=== PATIENT | male | born 1945 | race Caucasian/White ===

== ENCOUNTER 2020-07-27 05:28 | Emergency (ER) | payer OTHER, MEDICARE ==
[~2020-07-27] VITALS: Ht 177.8 cm; Wt 89.8 kg
[~2020-07-27 05:28] MED LIST: ASPI81CH PO; HYDACE5 PO; METO25ER PO; NORT25 PO; SIMV10 PO; TESTTP TOP
[2020-07-27 05:44] LABS: BASOPHILS ABSOLUTE AUTO 0.02 K/mm3 (0.00-0.23); BASOPHILS PERCENT AUTO 0 % (0-2); EOSINOPHILS ABSOLUTE AUTO 0.23 K/mm3 (0.00-0.68); EOSINOPHILS PERCENT AUTO 3 % (0-6); Hematocrit 42.8 % (37.0-53.0); Hemoglobin 14.3 g/dL (13.5-17.5); IMMATURE GRAN ABSOLUTE AUTO 0.04 K/mm3 (0.00-0.10); IMMATURE GRAN PERCENT AUTO 1 % (0-1); LYMPHOCYTES ABSOLUTE AUTO 1.88 K/mm3 (0.84-5.20); LYMPHOCYTES PERCENT AUTO 22 % (21-46); MONOCYTES ABSOLUTE AUTO 0.84 K/mm3 (0.16-1.47); MONOCYTES PERCENT AUTO 10 % (4-13); Mean Corpuscular HGB 31.3 pg (26.0-34.0); Mean Corpuscular HGB Conc 33.4 g/dL (31.5-36.5); Mean Corpuscular Volume 94 fL (80-100); Mean Platelet Volume 10.4 fL (9.1-12.4); NEUTROPHILS ABSOLUTE AUTO 5.43 K/mm3 (1.96-9.15); NEUTROPHILS PERCENT AUTO 64 % (41-73); Platelet Count 196 K/mm3 (150-400); RDW Coefficient Variation 12.9 % (11.7-14.2); Red Blood Cell Count 4.57 M/mm3 (4.30-5.90); White Blood Cell Count 8.44 K/mm3 (4.00-11.30)
[2020-07-27] MEDS ORDERED: Norco 10-325 T1 EACH PO (06:12)
[2020-07-27] MEDS ORDERED: INSULANI SC (06:14)
[2020-07-27 06:15] LABS: Anion Gap 6 mmol/L (6-16); Blood Urea Nitrogen 29 mg/dL (8-24); Bun/Creatinine Ratio 20.9 (12.0-20.0); CO2, Blood 25 mmol/L (21-32); Calcium, Blood 9.3 mg/dL (8.5-10.1); Chloride, Blood 106 mmol/L (98-108); Creatinine, Blood 1.39 mg/dL (0.60-1.20); Glomerular Filtration Rate 53 (60-); Glucose, Blood 196 mg/dL (70-99); Potassium, Blood 4.3 mmol/L (3.5-5.5); Sodium, Blood 137 mmol/L (136-145); Troponin I <0.015 ng/mL (0.000-0.040)
[2020-07-27] MEDS ORDERED: METF500 PO (06:16)
[2020-07-27] MEDS ORDERED: NOVOLIN N100 UNIT/2 SC (06:16)
[2020-07-27] MEDS ORDERED: SERT100 PO (06:18)
[2020-07-27] MEDS ORDERED: OZEMPIC1 MG/0.72 SC (06:21)
[2020-07-27] MEDS ORDERED: PRAZ5 PO (06:21)
[2020-07-27 07:16] LABS: Albumin/Globulin Ratio 1.1 (0.8-1.8); Bilirubin, Total 0.4 mg/dL (0.1-1.0); Bun/Creatinine Ratio 22.3 (12.0-20.0); Calcium, Blood 9.6 mg/dL (8.5-10.1); Creatinine, Blood 1.39 mg/dL (0.60-1.20); Globulin, Blood 3.7 g/dL (2.2-4.0); Potassium, Blood 4.4 mmol/L (3.5-5.5); Total Protein, Blood 7.7 g/dL (6.4-8.2)
== END 2020-07-27 08:08 | disposition home or self-care (01) ==
LOC: ER 05:28
PROVIDERS: Emergency Medicine; Student in an Organized Health Care Education/Training Program
DX: R07.9 Chest pain, unspecified (principal); Z79.82 Long term (current) use of aspirin; Z79.899 Other long term (current) drug therapy; Z87.891 Personal history of nicotine dependence
CPT/HCPCS: 36415; 71045; 80048; 80053; 83690; 84484; 85025; 93005; 93010; 99285-25

== ENCOUNTER 2021-04-10 08:50 | Inpatient (IN) | payer OTHER ==
[~2021-04-10] VITALS: Ht 185.4 cm; Wt 78.6 kg
[~2021-04-10 08:50] MED LIST changes: +INSULANI SC; +METF500 PO; +NOVOLIN N100 UNIT/2 SC; +Norco 10-325 T1 EACH PO; +OZEMPIC1 MG/0.72 SC; +PRAZ5 PO; +SERT100 PO
[2021-04-10 09:04] LABS: PCO2 Arterial 12.7 mmHg (35-45); PO2 Arterial 164 mmHg (80-100); pH Blood Arterial 6.88 (7.35-7.45)
[2021-04-10 09:20] LABS: Calcium, Ionized (POC) 0.94 mmol/L (1.10-1.46); Chloride (POC) 111 mmol/L (98-108); Creatinine (POC) 2.4 mg/dL (0.8-1.3); Glucose (ISTAT POC) >700 mg/dL (70-99); Hemoglobin (POC) 13.3 g/dL (13.5-17.5); Potassium (POC) 4.3 mmol/L (3.5-5.5); Sodium (POC) 136 mmol/L (135-148); Total CO2 (POC) 6 mmol/L (21-32)
[2021-04-10 10:06] LABS: Hematocrit 45.9 % (37.0-53.0); Mean Corpuscular HGB 31.5 pg (26.0-34.0); Mean Corpuscular HGB Conc 30.5 g/dL (31.5-36.5); Mean Corpuscular Volume 103 fL (80-100); Mean Platelet Volume 12.2 fL (9.1-12.4); Platelet Count 223 K/mm3 (150-400); RDW Coefficient Variation 13.7 % (11.7-14.2); RDW Standard Deviation 52.1 fL (35.1-46.3); Red Blood Cell Count 4.44 M/mm3 (4.30-5.90); White Blood Cell Count 28.18 K/mm3 (4.00-11.30)
[2021-04-10 10:33] LABS: BAND PERCENT MAN 2 % (0-8); BASOPHILS PERCENT MAN 0 % (0-2); TOTAL CELLS COUNTED 100
[2021-04-10 10:36] LABS: EOSINOPHILS ABSOLUTE MAN 0.28 K/mm3 (0.00-0.68); EOSINOPHILS PERCENT MAN 1 % (0-6); LYMPHOCYTES ABSOLUTE MAN 1.69 K/mm3 (0.84-5.20); LYMPHOCYTES PERCENT MAN 6 % (21-46); MONOCYTES ABSOLUTE MAN 1.97 K/mm3 (0.16-1.47); MONOCYTES PERCENT MAN 7 % (4-13); MYELOCYTE ABSOLUTE MAN 1.12 K/mm3 (0.00-0.00); MYELOCYTE PERCENT MAN 4 % (0-0); SEG NEUTROPHILS PERCENT MAN 80 % (41-73)
[2021-04-10 10:37] LABS: Albumin, Blood 2.6 g/dL (3.4-5.0); Albumin/Globulin Ratio 0.8 (0.8-1.8); Bilirubin, Total 0.6 mg/dL (0.1-1.0); Bun/Creatinine Ratio 35.4 (12.0-20.0); Calcium, Blood 7.7 mg/dL (8.5-10.1); Creatinine, Blood 2.85 mg/dL (0.60-1.20); Globulin, Blood 3.4 g/dL (2.2-4.0)
[2021-04-10 10:57] LABS: Source, Urine Foley catheter
[2021-04-10 11:00] LABS: Appearance, Urine Clear (Clear); Bilirubin, Urine Neg (Neg); Blood, Urine 5+ (Neg); Color, Urine Yellow (P-Yellow); Glucose Qualitative, Urine 4+ (Neg); Ketones, Urine 3+ (Neg); Leukocyte Esterase, Urine Neg (Neg); Nitrite, Urine Neg (Neg); Protein, Urine 3+ (Neg); Urobilinogen, Urine NORM (Normal)
[2021-04-10 11:14] LABS: Bacteria Mod /hpf; Red Blood Cells, Urine 0-2 /hpf (0-2); Squamous Epithelial Cells Rare /hpf (Few); White Blood Cells, Urine 0-2 /hpf (0-5)
[2021-04-10 11:16] LABS: Granular Casts 0-2 /lpf (0); Hyaline Casts 0-2 /lpf (0-2)
[2021-04-10 11:37] LABS: Influenza A, PCR NEGATIVE (NEGATIVE); Influenza B, PCR NEGATIVE (NEGATIVE); Resp Syncytial Virus, PCR NEGATIVE (NEGATIVE); SARS-Cov-2 (COVID-19) PCR, MMC NEGATIVE (NEGATIVE)
[2021-04-10 14:14] LABS: U Amphetamine Screen Not Detected; U Barbituate Screen Not Detected; U Benzodiazapine Screen Not Detected; U Buprenorphine Screen Not Detected; U Cannabinoids Screen Not Detected; U Cocaine Screen Not Detected; U Methadone Screen Not Detected; U Methamphetamine Screen Not Detected; U Opiates Screen Not Detected; U Oxycodone Screen Not Detected; U Phencyclidine Screen Not Detected; U Propoxyphene Screen Not Detected
--- NOTE | 2021-04-10 14:51 | NUR ---
ASSUMPTION OF CARE RECEIVED REPORT FROM ADRIAN RN IN ED AT 1233. PATIENT ARRIVED VIA GURNEY AT 1245 WITH 3 MOLDER TRIMMER TO BED. PATIENT AWAKE, NON VERBAL AND IS NOT FOLLOWING COMMANDS. ONE 20 G IV IN RUE WITH BICARB AND INSULIN INFUSING, LAB TO BEDSIDE UPON PATIENT'S ARRIVAL WITH TWO ATTEMPTS AT BLOOD DRAW UNSUCCESSFULLY. NOTIFIED DR. MARROQUIN AT 13:15 OF LIMITED ACCESS AND PATIENT'S LAB DRAW ATTEMPT. DR. MARROQUIN TO BEDSIDE AT [address] CENTRAL LINE. CENTRAL LINE PLACED AT 14:15. PATIENT BECAME AGITATED DURING LINE PLACEMENT, ATTEMPTING TO PUSH BLANKETS AND STAFF AWAY AND ATTEMPTING TO SIT UP. ATIVAN AND VERBAL REASSURANCE PROVIDED AND 2 RN ASSIST FOR LINE PLACEMENT. ECHO BEGAN TAKING PLACE AND CXR COMPLETED FOR LINE VERIFICATION. NOTIFIED OF CURRENT PROCEDURES. WILL REVIEW ORDERS AND TREAT PRESCRIBED.
[2021-04-10 15:01] LABS: Bun/Creatinine Ratio 35.1 (12.0-20.0); Creatinine, Blood 2.88 mg/dL (0.60-1.20)
[2021-04-10 15:05] LABS: Potassium, Blood 3.8 mmol/L (3.5-5.5)
[2021-04-10 15:38] LABS: Creatine Kinase MB 149.6 ng/mL (0.0-3.6); Creatine Kinase MB Index 4.2 (0.0-4.0)
[2021-04-10 16:25] LABS: Glucose, Blood 706 mg/dL (70-99)
--- NOTE | 2021-04-10 17:55 | NUR ---
SHIFT SUMMARY NO CHANGES TO MENTATION FROM INITIAL ASSESSMENT. PATIENT RESPONDS TO PHYSICAL STIMULI, SOMULENT WHEN NOT DISTURBED. VITALS REMAINED STABLE, ON RA. INSULIN CONTINUES INFUSING VIA IV GLUCOSE IS TRENDING DOWN. REPLACED CALCIUM AND BICARB DRIP CONTINUES AT 125ML/HR. CRITICAL LABS REPORTED TO DR. MARROQUIN AND THEN TO DR. TOVAR. AWAITING ORDERS FOR RECENT CRITICAL TROPONIN. CENTRAL LINE WAS PLACED IN [facility] BY DR. MARROQUIN, RECEIVED VERBAL OKAY TO USE AND PLACEMENT WAS VERIFIED BY CXR. WILSON CATHETER WITH TEMP PROBE IN PLACE, TEMP CURRENTLY 96.8, BEAR HUGGER ON PATIENT. PLAN IS TO CONTINUE INSULIN AND BICARB DRIP WHILE MONITORING CBG EVERY HOUR AND TRENDING CHEMISTRIES ORDERED.
[2021-04-10 17:57] LABS: Creatine Kinase MB 150.7 ng/mL (0.0-3.6); Creatine Kinase MB Index 4.8 (0.0-4.0)
[2021-04-10 19:15] LABS: Bun/Creatinine Ratio 38.2 (12.0-20.0); Calcium, Blood 8.7 mg/dL (8.5-10.1); Creatinine, Blood 2.75 mg/dL (0.60-1.20); Potassium, Blood 4.1 mmol/L (3.5-5.5)
--- NOTE | 2021-04-10 20:00 | NUR ---
ASSUMED CARE OF PT AT 1915. REPORT RECEIVED AT BEDSIDE. PT PRESENTS IN BED. DOES NO RESPOND TO VERBAL STIMULI. WILL BRIEFLY OPEN EYES WITH TACTILE STIMULI. INSULIN DRIP AT 4 UNITS/HOUR. WILL DO HOURLY GLUCOSE CHECKS. PT CONTINUES ON BICARB DRIP. ROOM AIR WHERE PT IS ABLE TO MAINTAIN > 90 PERCENT SATURATIONS. WILL REVIEW CHART AND PLAN OF CARE FOR THIS PT.
[2021-04-10 22:51] LABS: Hematocrit 42.3 % (37.0-53.0); Hemoglobin 14.8 g/dL (13.5-17.5)
[2021-04-11 00:32] LABS: Bun/Creatinine Ratio 42.7 (12.0-20.0); Calcium, Blood 8.2 mg/dL (8.5-10.1); Creatinine, Blood 2.41 mg/dL (0.60-1.20); Potassium, Blood 3.8 mmol/L (3.5-5.5)
--- NOTE | 2021-04-11 00:53 | NUR ---
HAVE INCREASED INSULIN DRIP TO 4.5 UNITS/HOUR. DID CALL DR TOVAR CONCERNING PT'S INCREASING HEART RATE, CONTINUED KUSMAL TYPE RESPIRATION, A DEEP COLORED BRUISE TO LEFT LATERAL RIBS WITH BRUISING IN UPPER QUADRANT OF ABDOMEN. PT TAKEN TO CT FOR ABDOMEN/CHEST CT. STAT H/H DONE. BOLUS OF NS PER DR TOVRA. HAVE MEDICATED PT WITH 25 MCG'S FENTANYL FOR GRIMACING WITH PALPATION OF ABDOMEN. THIS SEEMS TO BE HELPING PT. WILL CONTINUE TO MONITOR.
[2021-04-11 04:15] LABS: EOSINOPHILS PERCENT AUTO 0 % (0-6); IMMATURE GRAN PERCENT AUTO 1 % (0-1); LYMPHOCYTES PERCENT AUTO 3 % (21-46)
[2021-04-11 04:23] LABS: BASOPHILS ABSOLUTE AUTO 0.02 K/mm3 (0.00-0.23); BASOPHILS PERCENT AUTO 0 % (0-2); Hematocrit 38.3 % (37.0-53.0); Hemoglobin 13.6 g/dL (13.5-17.5); IMMATURE GRAN ABSOLUTE AUTO 0.14 K/mm3 (0.00-0.10); LYMPHOCYTES ABSOLUTE AUTO 0.52 K/mm3 (0.84-5.20); MONOCYTES ABSOLUTE AUTO 1.51 K/mm3 (0.16-1.47); MONOCYTES PERCENT AUTO 10 % (4-13); Mean Corpuscular HGB Conc 35.5 g/dL (31.5-36.5); NEUTROPHILS ABSOLUTE AUTO 12.93 K/mm3 (1.96-9.15); NEUTROPHILS PERCENT AUTO 86 % (41-73); Platelet Count 150 K/mm3 (150-400); RDW Coefficient Variation 13.2 % (11.7-14.2); RDW Standard Deviation 42.6 fL (35.1-46.3); Red Blood Cell Count 4.39 M/mm3 (4.30-5.90); White Blood Cell Count 15.12 K/mm3 (4.00-11.30)
[2021-04-11 04:25] LABS: Mean Corpuscular Volume 87 fL (80-100)
[2021-04-11 04:44] LABS: Albumin, Blood 2.7 g/dL (3.4-5.0); Albumin/Globulin Ratio 0.8 (0.8-1.8); Bilirubin, Total 0.5 mg/dL (0.1-1.0); Bun/Creatinine Ratio 45.6 (12.0-20.0); Calcium, Blood 8.3 mg/dL (8.5-10.1); Creatinine, Blood 2.06 mg/dL (0.60-1.20); Globulin, Blood 3.6 g/dL (2.2-4.0); Potassium, Blood 3.4 mmol/L (3.5-5.5); Total Protein, Blood 6.3 g/dL (6.4-8.2)
--- NOTE | 2021-04-11 06:58 | NUR ---
CALL MADE TO DR ARELLANO THIS AM WITH AM LABS, AND UPDATE ON INSULIN DRIP AND PT'S PROGRESS. ORDERS RECEIVED. HAVE STOPPED BICARB DRIP, AND PT HAS RECEIVED DOSE OF SEMGLEE. PT HAS BEEN WAKING MORESO THIS MORNING. HAS BEEN ABLE TO RESPOND TO SOME QUESTIONS. HAVE MEDICATED PT ONCE THIS SHIFT WITH FENTANYL. WILL CONTINUE TO MONITOR PT, AND WILL REPORT OFF TO ONCOMING RN.
[2021-04-11 13:30] LABS: Bun/Creatinine Ratio 53.4 (12.0-20.0); Calcium, Blood 8.2 mg/dL (8.5-10.1); Creatinine, Blood 1.63 mg/dL (0.60-1.20)
--- NOTE | 2021-04-11 18:10 | NUR ---
SHIFT SUMMARY NO ACUTE CHANGES THIS SHIFT. PT REMAINS SOMNOLENT, BUT IS AROUSEABLE TO VERBAL STIMULI. PT SPEAKS SOME WORDS CLEARLY, BUT MOST SPEECH IS GARBLED. PT DENIES PAIN OR DISCOMFORT. VITAL SIGNS STABLE. PT ON ROOM AIR. CENTRAL LINE TO [facility] C/D/I. 1/2 NS INFUSING AT 100 ML/HR AND HEPARIN GTT 14 UNITS/KG/HR. WILSON TEMP PROBE REMAINS IN PLACE WITH BRIGHT CLEAR RED URINE OUTPUT NOTED. WILSON WITH SOME LEAKING AT MEATUS. NO CLOTTS NOTED. DR KEENE AWARE. PT SPOUSE AT BEDSIDE THIS AFTERNOON. WILL CONTINUE TO MONITOR AND REPORT OFF TO ONCOMING RN.
--- NOTE | 2021-04-11 19:38 | NUR ---
ASSUMED CARE @1900 PATIENT IS LETHARGIC, OPENS EYES SPONTENEOUSLY. ORIENTED TO SELF AND STATES HE IS IN THE HOSPITAL. UNABLE TO STATE YEAR OR CITY. REPEATS SELF AND UNABLE TO ANSWER APPROPRIETLY WHEN ASKED A NEW QUESTION. FOLLOWING COMMANDS AND MOVING ALL EXTREMETIES BUT VERY WEAK. SPEECH IS GARBLED AND PATIENT IS SLOW TO RESPOND. 02 SATS >93% ON RA. BREATHING TACHYPNEIC. HR ST @110s. BP STABLE. HEPARIN INF. WILSON DRAINING BLOODY URINE. ORAL CARE DONE. WILL REPOSITION PATIENT Q2 HOURS. CALL LIGHT IN REACH. SEE SHIFT ASSESSMENT FOR MORE DETAIL.
--- NOTE | 2021-04-11 20:10 | NUR ---
CALLED HOSPITALIST DUE TO PATIENTS PUPILS BEING UNEQUAL, RIGHT PUPIL LARGER THAN LEFT. HOSPITALIST TO REVIEW PATIENT.
--- NOTE | 2021-04-11 21:27 | NUR ---
DR. OTVAR TO ROOM TO ASESS PATIENT. WILL CONTINUE TO MONITOR PATIENT, NO OTHER ORDERS.
[2021-04-11 21:30] LABS: Bun/Creatinine Ratio 52.4 (12.0-20.0); Calcium, Blood 8.5 mg/dL (8.5-10.1); Creatinine, Blood 1.43 mg/dL (0.60-1.20); Potassium, Blood 3.6 mmol/L (3.5-5.5)
[2021-04-12 03:44] LABS: BASOPHILS ABSOLUTE AUTO 0.01 K/mm3 (0.00-0.23); BASOPHILS PERCENT AUTO 0 % (0-2); EOSINOPHILS PERCENT AUTO 0 % (0-6); Hematocrit 34.6 % (37.0-53.0); IMMATURE GRAN ABSOLUTE AUTO 0.05 K/mm3 (0.00-0.10); IMMATURE GRAN PERCENT AUTO 1 % (0-1); LYMPHOCYTES ABSOLUTE AUTO 0.81 K/mm3 (0.84-5.20); LYMPHOCYTES PERCENT AUTO 8 % (21-46); MONOCYTES ABSOLUTE AUTO 1.01 K/mm3 (0.16-1.47); MONOCYTES PERCENT AUTO 10 % (4-13); Mean Corpuscular HGB 31.4 pg (26.0-34.0); Mean Corpuscular HGB Conc 34.7 g/dL (31.5-36.5); Mean Corpuscular Volume 91 fL (80-100); Mean Platelet Volume 10.9 fL (9.1-12.4); NEUTROPHILS ABSOLUTE AUTO 7.84 K/mm3 (1.96-9.15); NEUTROPHILS PERCENT AUTO 81 % (41-73); Platelet Count 123 K/mm3 (150-400); RDW Coefficient Variation 14.4 % (11.7-14.2); RDW Standard Deviation 47.6 fL (35.1-46.3); Red Blood Cell Count 3.82 M/mm3 (4.30-5.90); White Blood Cell Count 9.72 K/mm3 (4.00-11.30)
[2021-04-12 04:00] LABS: Bun/Creatinine Ratio 50.8 (12.0-20.0); Calcium, Blood 8.3 mg/dL (8.5-10.1); Creatinine, Blood 1.26 mg/dL (0.60-1.20); Potassium, Blood 3.4 mmol/L (3.5-5.5)
--- NOTE | 2021-04-12 06:10 | NUR ---
SHIFT SUMMARY PATIENT ORIENTED X4. STILL LETHARGIC AT TIMES. ABLE TO FOLLOW COMMANDS AND MOVE ALL EXTREMETIES. SLOW TO RESPOND AND SPEECH REMAINS GARBLED. RIGHT PUPILS REMAINS SLIGHTLY LARGER THAN LEFT. DR. ARELLANO NOTIFIED OF PATIENTS SODIUM THIS AM, SWITCHED TO D5W, AND INSULIN CHANGED SEE EMAR. ORDERS TO REPLACE POTASSIUM WELL. EKG DONE DUE TO PATIENT REPORTING SHARP CHEST PAIN, AND RHYTHM CHANGES. 0500-PATIENT BECAME NAUSEOUS AND HAD 100 MLS BLOODY EMESIS. HEPARIN GTT STOPPED, PATIENT MEDICATED PER EMAR FOR NAUSEA. CALL PLACED TO DR. FERRER, NOTIFIED HIM OF EMESIS AND HEMATURIA, HEPARIN DC'd WELL PLAVIX AND ASPIRIN. GI CONSULT ORDERED, PROTONIX BOLUS AND GTT STARTED. DR. FERRER ALSO VISUALIZED EKG AND TELE STRIPS OF POSSIBLE HEART BLOCK. ORDERS TO CHECK MAG. 0545- CALLED AND UPDATED DR. ARELLANO ON BLOODY EMESIS, HEMATURIA ( ALSO AWARE), AND CHANGES MADE BY DR. FERRER. ORDERS FOR REPEAT H&Hs. PATIENT PLACED ON 2L VIA NC AFTER EMESIS 02 SATS 98%. HR ST @110. BP STABLE. ORAL CARE DONE THROUGH THE NIGHT. PATIENT REPOSITIONED Q2 HOURS.
[2021-04-12 06:22] LABS: Hematocrit 35.7 % (37.0-53.0); Hemoglobin 12.2 g/dL (13.5-17.5)
[2021-04-12 10:35] LABS: Hematocrit 35.6 % (37.0-53.0); Hemoglobin 12.1 g/dL (13.5-17.5)
[2021-04-12 14:05] LABS: Hematocrit 35.4 % (37.0-53.0); Hemoglobin 12.1 g/dL (13.5-17.5)
--- NOTE | 2021-04-12 15:40 | NUR ---
FAMILY UPDATE PT SPOUSE AT BEDSIDE THIS MORNING. DISCUSSED NEED FOR TRANSFER FOR GI SERVICES WITH DR FERRER AND DR FOLEY. PT SPOUSE DISCUSSED WITH CHILDREN AND PT. PT SPOUSE RETURNED TO SEE PT THIS AFTERNOON AND HAVE DECIDED THEY ARE OK FOR TRANSFER. DR FOLEY NOTIFIED. WILL CONTINUE TO MONITOR.
--- NOTE | 2021-04-12 17:20 | NUR ---
SHIFT SUMMARY NO ACUTE CHANGES THIS SHIFT. PT HAS REMAINED ALERT AND ORIENTED WHEN AWAKE. PT WITH PERIODS OF SLEEPING THIS AFTERNOON, BUT IS EASILY AROUSEABLE. PT FORGETFUL AT TIMES. PT HAS DENIED ANY PAIN OR DISCOMFORT THIS SHIFT. PT WITH MOIST VOICE SOUNDS AND WEAK COUGH. PT WITHOUT ANY EPISODES OF BLOODY EMESIS THIS SHIFT. CENTRAL LINE TO [facility] REMAINS C/D/I WITH D5 INFUSING AT 75 ML/HR AND PROTONIX GTT AT 10 ML/HR. WILSON TEMP PROBE REMAINS IN PLACE WITH URINE OUTPUT TURNING TO CLEAR YELLOW THIS AFTERNOON. VITAL SIGNS REMAIN STABLE. PT ON WAITLIST FOR POTENTIAL TRANSFER TO [facility] PER DR FOLEY. WILL CONTINUE TO MONITOR AND REPORT OFF TO ONCOMING RN.
--- NOTE | 2021-04-12 20:02 | NUR ---
ASSUMED CARE 1900 PATIENT IS ALERT AND ORIENTED X4. FOLLOWING COMMANDS AND ABLE TO MOVE ALL EXTREMETIES. WEAKNESS T/O. SPEECH REMAINS GARBLED AT TIMES, PATIENT SLOW TO REPSOND TO QUESTIONS AND [place]. 02 SATS 93% ON 2L VIA NC, LS COARSE T/O. PATIENT HAS A MOIST COUGH. HR ST @110s. BP STABLE. PATIENT COMPLAINING OF 8/10 CHEST PAIN, EKG DONE, NO SIGNIFICANT CHANGES NOTICED, MEDICATED PATIENT PER EMAR FOR PAIN AND HE IS CURRENTLY SLEEPING. WILSON DRAINING CLEAR YELLOW URINE, SLIGHT PINK TINGE. ABDOMEN TENDER. REPOSITIONED PATIENT, CATHETER CARE DONE, AND ORAL CARE PROVIDED. CALL LIGHT IN REACH. SEE SHIFT ASSESSMENT FOR MORE DETAIL.
--- NOTE | 2021-04-12 21:13 | NUR ---
AT APPROX [address] FERRER REGARDING PATIENTS CONTINUED CHEST PAIN ORDERS FOR SL NITRO THEN TO CALL BACK WITH RESULTS. WITH SECOND SL NITRO PATIENT REPORTED HIS CHEST PAIN WAS GONE, HOWEVER HIS HEART RATE INCREASED TO 130s, AND 02 SATS DROPPED TO 85%. DR. FERRER UPDATED AT APPROX 2054, ORDERS FOR LASIX AND POTASSIUM (SEE EMAR). ORDERS FOR NITRO PASTE IF CHEST PAIN RESTURNS. PATIENT IS CURRENTLY ON AIRVO AT 45L FI02 100% SATS 97%. REPORTS NO CHEST PAIN, BP STABLE.
--- NOTE | 2021-04-12 23:06 | NUR ---
PT UNABLE TO SIGN TRANSFER PAPERS. SPOKE WITH [facility] AND GOT VERBAL CONSENT TO TRANSFER AND RISKS IDENTIFIED. [facility] INFORMED OF ROOM NUMBER AND UNIT THAT PT WILL BE GOING TO AT [facility] ED AND GIVEN THE PHONENUMBER TO CONTACT THEM.
--- NOTE | 2021-04-12 23:54 | NUR ---
CALLED REPORT TO CAROL DUMONT RN AT [facility] AT APPROX 0600. PATIENT AND NOTIFIED OF TRANSFER ORDERS. WILL UPDATE CAROL ROSA WHEN PATIENT LEAVES.
--- NOTE | 2021-04-13 00:25 | NUR ---
PATIENT LEFT VIA EMS FOR [facility] AT APPROX 0025. NOTIFIED CAROL ROSA AT [facility] THAT PATIENT HAS LEFT.
--- NOTE | 2021-04-13 00:32 | NUR ---
PRIOR TO PATIENT LEAVING HE WAS ALERT AND ORIENTED X4. FEVER AT 102.6, ICE PACKS APPLIED FAN. DR. FERRER WAS ALSO NOTIFIED THAT PATIENT WAS BEING TRANSFERRED.
== END 2021-04-13 00:20 | disposition short-term general hospital (02) | DRG 280 ==
LOC: ER 08:50 → ICUE 12:04
PROVIDERS: Emergency Medicine; Family Medicine; Internal Medicine; ADMIT Internal Medicine
DX: I21.4 Non-ST elevation (NSTEMI) myocardial infarction (principal); E11.10 Type 2 diabetes mellitus with ketoacidosis without coma; G92.8 Other toxic encephalopathy; I63.9 Cerebral infarction, unspecified; R65.11 Systemic inflammatory response syndrome (SIRS) of non-infectious origin with acute organ dysfunction; N17.9 Acute kidney failure, unspecified; E87.1 Hypo-osmolality and hyponatremia; K92.0 Hematemesis; E87.0 Hyperosmolality and hypernatremia; Z20.822 Contact with and (suspected) exposure to COVID-19; Z66 Do not resuscitate; T79.6XXA Traumatic ischemia of muscle, initial encounter; I12.9 Hypertensive chronic kidney disease with stage 1 through stage 4 chronic kidney disease, or unspecified chronic kidney disease; E11.22 Type 2 diabetes mellitus with diabetic chronic kidney disease; E78.5 Hyperlipidemia, unspecified; N18.2 Chronic kidney disease, stage 2 (mild); E87.5 Hyperkalemia; E86.0 Dehydration; R31.0 Gross hematuria; I35.0 Nonrheumatic aortic (valve) stenosis; I25.2 Old myocardial infarction; Z79.4 Long term (current) use of insulin; Z79.899 Other long term (current) drug therapy; W18.39XA Other fall on same level, initial encounter
CPT/HCPCS: 0241U; 36415; 36556; 36600; 51702; 70450; 70496; 70498; 71045; 71250; 74176; 80047; 80048; 80053; 81001; 82550; 82553; 82803; 82947; 83605; 83735; 84132; 84484; 85014; 85018; 85025; 85520; 87040; 87086; 93005; 93010; 93306; 96365-59; 96376-59; 99285-25; A9270; C1751; C9113; J0610; J1644; J1815; J1940; J2060; J2405; J3010; J3480; J7030; J7040; J7070; Q9967